=== PATIENT | female | born 1980 | race Two or more races ===

== ENCOUNTER 2017-04-19 12:14 | Emergency (ER) | payer OTHER ==
[~2017-04-19] VITALS: Ht 149.9 cm; Wt 52.6 kg
[2017-04-19 12:32] VITALS: BP 115/70
== END 2017-04-19 12:34 | disposition home or self-care (01) ==
LOC: ER 12:16
DX: J06.9 Acute upper respiratory infection, unspecified (principal); Z41.1 Encounter for cosmetic surgery
CPT/HCPCS: 99283; A4606; Z7610